=== PATIENT | female | born 1980 | race Asian ===

== ENCOUNTER 2019-09-12 08:02 | Emergency (ER) | payer MEDICAID, OTHER ==
[~2019-09-12] VITALS: Ht 154.9 cm; Wt 65.0 kg
[2019-09-12 08:04] VITALS: Ht 154.9 cm; Wt 65.0 kg
[2019-09-12] MEDS ORDERED: ONDANSETRON (ODT) 4 MG TAB ODT STA (08:20)
[2019-09-12] MEDS ORDERED: HYDROCODONE/APAP (5/325) TAB PO ONE (08:30)
[2019-09-12] MEDS ORDERED: morphine 2 MG INJ IV STA (10:13)
[2019-09-12] MEDS ORDERED: DIPHTH/TET/ACEL PERTUSS (ADULT) 0.5 ML VIAL IM* ONE (10:30)
[2019-09-12] MEDS ORDERED: CEFAZOLIN 1 GM/50 ML (PMX) 50 ML IVPB SCH (10:30)
[2019-09-12 11:43] VITALS: BP 109/64; PULSE 78; RESP 18
== END 2019-09-12 12:37 | disposition short-term general hospital (02) ==
LOC: FTE 08:02
DX: S02.601B Fracture of unspecified part of body of right mandible, initial encounter for open fracture (principal); S02.602B Fracture of unspecified part of body of left mandible, initial encounter for open fracture; V00.141A Fall from scooter (nonmotorized), initial encounter; Z23 Encounter for immunization
CPT/HCPCS: 70486; 81025; 90471; 90715; 96374; 96375; J0690; J2270; Z7502; Z7610